=== PATIENT | male | born 1950 | race Caucasian/White ===

== ENCOUNTER 2023-08-29 23:23 | Inpatient (IN) | payer MEDICARE ==
[~2023-08-29] VITALS: Ht 182.9 cm; Wt 92.6 kg
[2023-08-29] MEDS ORDERED: FAMO10TA41 PO (23:43)
[2023-08-29] MEDS ORDERED: INSU100V7 SQ (23:43)
[2023-08-29] MEDS ORDERED: DILT30TA35 PO (23:43)
[2023-08-29] MEDS ORDERED: TADA5TAB2 PO (23:43)
[2023-08-29] MEDS ORDERED: APIX2.5T PO (23:43)
[2023-08-29] MEDS ORDERED: METF-440 PO (23:43)
[2023-08-29] MEDS ORDERED: ASPIRIN 81 MG TAB.CHEW ONE (23:48)
[2023-08-29] MEDS ORDERED: NITROGLYCERIN OINT 1 GM PACKET TP ONE (23:48)
[2023-08-29] MEDS ORDERED: LABETALOL HCL 100 MG/20 ML VIAL ONE (23:48)
[2023-08-29] MEDS: IV NORMAL SALINE 500 ML BAG IV ONE (23:54)
[2023-08-29] MEDS: LABETALOL HCL 100 MG/20 ML VIAL IV ONE (23:55)
[2023-08-29] MEDS: NITROGLYCERIN OINT 1 GM PACKET TP ONE (23:55)
[2023-08-29] MEDS: ASPIRIN 81 MG TAB.CHEW PO ONE (23:55)
[2023-08-30] MEDS ORDERED: ADENOSINE 6 MG/2 ML SYR IV ONE (00:01)
[2023-08-30] MEDS: ADENOSINE 6 MG/2 ML SYR IV ONE (00:02)
[2023-08-30] MEDS: ONDANSETRON 4 MG/2 ML VIAL IV ONE (00:10)
[2023-08-30] MEDS ORDERED: ONDANSETRON 4 MG/2 ML VIAL ONE (00:11)
[2023-08-30] MEDS ORDERED: ETOMIDATE 20 MG/10 ML VIAL ONE (00:13)
[2023-08-30] MEDS: ETOMIDATE 20 MG/10 ML VIAL IV ONE (00:20)
[2023-08-30 00:26] LABS: BASOPHILS # (AUTO) 0.1 K/UL (0.0-0.2); BASOPHILS % (AUTO) 0.5 % (0.0-2.0); EOSINOPHILS # (AUTO) 0.1 K/uL (0.0-0.7); EOSINOPHILS % (AUTO) 1.1 % (0.0-7.0); HEMATOCRIT 48.6 % (36.7-47.1); HEMOGLOBIN 15.6 g/dL (12.5-16.3); LYMPHOCYTES # (AUTO) 2.4 K/uL (0.8-4.8); LYMPHOCYTES % (AUTO) 20.5 % (20.5-51.5); MEAN CORPUSCULAR HEMOGLOBIN 24.9 uug (23.8-33.4); MEAN CORPUSCULAR HGB CONC 32 g/dL (32.5-36.3); MEAN CORPUSCULAR VOLUME 77.8 fL (73.0-96.2); MONOCYTES # (AUTO) 0.8 K/uL (0.1-1.30); MONOCYTES % (AUTO) 6.5 % (0.0-11.0); NEUTROPHILS # (AUTO) 8.4 K/uL (1.8-8.9); NEUTROPHILS % (AUTO) 71.4 % (38.5-71.5); PLATELET COUNT (AUTO) 189 K/uL (152-348); RED BLOOD CELL COUNT(AUTO) 6.24 MIL/uL (4.06-5.63); RED CELL DISTRIBUTION WIDTH 17.6 % (12.1-16.2); WHITE BLOOD COUNT (AUTO) 11.8 K/uL (3.6-10.2)
[2023-08-30 00:27] LABS: DIFFERENTIAL COMMENT 1
[2023-08-30 00:38] LABS: CALCIUM 8.7 mg/dL (8.5-10.1); CARBON DIOXIDE 21 mmol/L (21-32); CHLORIDE 105 mmol/L (98-107); CREATININE 1.4 mg/dL (0.6-1.3); GLUCOSE 172 mg/dL (74-106); POTASSIUM 3.5 mmol/L (3.5-5.1); SODIUM SERUM 140 mmol/L (136-145); UREA NITROGEN, BLOOD 34 mg/dL (7-18)
[2023-08-30 00:52] LABS: ALANINE AMINOTRANSFERASE 31 U/L (16-63); ALBUMIN 3.4 g/dL (3.4-5.0); ALKALINE PHOSPHATASE 96 U/L (50-136); ASPARTATE AMINOTRANSFERASE 38 U/L (15-37); BILIRUBIN,DIRECT 0.2 mg/dL (0.0-0.2); BILIRUBIN,TOTAL 0.8 mg/dL (0.2-1.0); NT-PRO BNP 272 pg/mL (0-125); TOTAL PROTEIN, SERUM 6.5 g/dL (6.4-8.2)
[2023-08-30] MEDS ORDERED: ACETAMINOPHEN 325 MG TABLET PO PRN (02:15)
[2023-08-30] MEDS ORDERED: hydrALAZINE HCL 20 MG/1 ML VIAL IV PRN (02:15)
[2023-08-30] MEDS ORDERED: ONDANSETRON 4 MG/2 ML VIAL IV PRN (02:15)
[2023-08-30] MEDS ORDERED: MORPHINE SULFATE 2 MG/1 ML DISP.SYRIN IVP PRN (02:15)
[2023-08-30] MEDS ORDERED: INSULIN REGULAR, HUMAN 300 UNITS/3 ML VIAL SQ PRN (02:15)
[2023-08-30] MEDS ORDERED: INSULIN REGULAR, HUMAN 300 UNIT/3 ML VIAL SQ PRN (02:15)
[2023-08-30] MEDS ORDERED: MAGNESIUM HYDROXIDE 30 ML LIQUID UDC PO PRN (02:15)
[2023-08-30] MEDS ORDERED: DEXTROSE 50% 50 ML DISP.SYRIN IV PRN (02:15)
[2023-08-30 03:59] LABS: *BILIRUBIN,URIN NEGATIVE (NEGATIVE); *CLARITY,URINE CLEAR (CLEAR); *COLOR,URINE YELLOW (YELLOW); *KETONES,URINE 1+ (NEGATIVE); *PROTEIN,URINE 1+ (NEGATIVE); *UROBILINOGEN,URINE 0.2 E.U./dl (NORMAL); LEUKOCYTE ESTERASE ,URINE NEGATIVE (NEGATIVE); NITRITE, URINE NEGATIVE (NEGATIVE); PH,URINE 5.5 (5.0-8.0)
[2023-08-30 04:00] LABS: *BLOOD, URINE TRACE (NEGATIVE); UGLUCOSE 3+ (NEGATIVE)
[2023-08-30 04:10] LABS: BACTERIA,URINE NONE SEEN /HPF (NONE SEEN); SQUAMOUS EPITHELIAL CELL,UR FEW /HPF (NONE SEEN); WBC,URINE 0-3 /HPF (0-3)
[2023-08-30 04:14] LABS: *AMPHETAMINE, URINE NEGATIVE (NEGATIVE); *BARBITURATE, URINE NEGATIVE (NEGATIVE); *BENZODIAZEPINE, URINE NEGATIVE (NEGATIVE); *CANNABINOID, URINE NEGATIVE (NEGATIVE); *COCCAINE, URINE NEGATIVE (NEGATIVE); *OPIATE, URINE NEGATIVE (NEGATIVE); *PHENCYCLIDINE SCREEN,URINE NEGATIVE (NEGATIVE)
[2023-08-30 04:15] LABS: FENTANYL, URINE NEGATIVE (NEGATIVE)
[2023-08-30 05:21] VITALS: BP 111/54; TEMP 97.8; O2SAT 94
[2023-08-30] MEDS: BLOOD SUGAR DIAGNOSTIC 1 EACH STRIP VI SCH (06:32)
[2023-08-30 07:40] VITALS: BP 121/61; TEMP 98.2; O2SAT 92
[2023-08-30 08:24] LABS: BASOPHILS # (AUTO) 0.1 K/UL (0.0-0.2); EOSINOPHILS # (AUTO) 0.1 K/uL (0.0-0.7); EOSINOPHILS % (AUTO) 1.5 % (0.0-7.0); LYMPHOCYTES # (AUTO) 2.5 K/uL (0.8-4.8); LYMPHOCYTES % (AUTO) 25.3 % (20.5-51.5); MEAN CORPUSCULAR HEMOGLOBIN 25.1 uug (23.8-33.4); MEAN CORPUSCULAR HGB CONC 33 g/dL (32.5-36.3); MEAN CORPUSCULAR VOLUME 77.1 fL (73.0-96.2); MONOCYTES # (AUTO) 0.8 K/uL (0.1-1.30); MONOCYTES % (AUTO) 8.2 % (0.0-11.0); NEUTROPHILS # (AUTO) 6.2 K/uL (1.8-8.9); PLATELET COUNT (AUTO) 179 K/uL (152-348); RED BLOOD CELL COUNT(AUTO) 5.97 MIL/uL (4.06-5.63); WHITE BLOOD COUNT (AUTO) 9.7 K/uL (3.6-10.2)
[2023-08-30 08:39] LABS: CALCIUM 8.3 mg/dL (8.5-10.1); CARBON DIOXIDE 26 mmol/L (21-32); CHLORIDE 106 mmol/L (98-107); GLUCOSE 138 mg/dL (74-106); POTASSIUM 3.9 mmol/L (3.5-5.1); SODIUM SERUM 141 mmol/L (136-145); UREA NITROGEN, BLOOD 32 mg/dL (7-18)
[2023-08-30 08:45] LABS: ALANINE AMINOTRANSFERASE 29 U/L (16-63); ALBUMIN 3.3 g/dL (3.4-5.0); ALKALINE PHOSPHATASE 101 U/L (50-136); ASPARTATE AMINOTRANSFERASE 75 U/L (15-37); BILIRUBIN,TOTAL 0.9 mg/dL (0.2-1.0); DIFFERENTIAL COMMENT 1; TOTAL PROTEIN, SERUM 6.4 g/dL (6.4-8.2)
[2023-08-30] MEDS: ENOXAPARIN SODIUM 100 MG/ML DISP.SYRIN SQ SCH (08:51)
[2023-08-30] MEDS: ASPIRIN 325 MG TABLET PO ONE (08:51)
[2023-08-30] MEDS: METOPROLOL TARTRATE 50 MG TABLET PO SCH (08:51)
[2023-08-30] MEDS: AMIODARONE HCL 200 MG TABLET PO SCH (08:52)
[2023-08-30] MEDS ORDERED: CARV12.52 PO (10:40)
[2023-08-30] MEDS ORDERED: ZANU80CA PO (10:40)
[2023-08-30] MEDS ORDERED: METF-442 PO (10:40)
[2023-08-30] MEDS ORDERED: INSU3INS9 SQ (10:40)
[2023-08-30] MEDS ORDERED: APIX5TAB PO (10:40)
[2023-08-30 11:48] VITALS: BP 115/59; TEMP 97.9; O2SAT 97
[2023-08-30] MEDS ORDERED: CLOP75TA33 PO (12:44)
[2023-08-30] MEDS ORDERED: ATORVASTATIN 40 MG TABLET PO SCH (21:00)
== END 2023-08-30 13:00 | disposition short-term general hospital (02) | DRG 280 ==
LOC: ER 23:26 → TELE3 08-30 02:00
PROVIDERS: ADMIT Internal Medicine; ATTEND Internal Medicine
PROC: 5A2204Z Restoration of Cardiac Rhythm, Single (ICD-10-PCS; principal; 2023-08-30)
DX: I21.4 Non-ST elevation (NSTEMI) myocardial infarction (principal); N17.0 Acute kidney failure with tubular necrosis; I47.19 Other supraventricular tachycardia; I48.92 Unspecified atrial flutter; I48.20 Chronic atrial fibrillation, unspecified; I48.0 Paroxysmal atrial fibrillation; Z79.01 Long term (current) use of anticoagulants; Z90.49 Acquired absence of other specified parts of digestive tract; E66.9 Obesity, unspecified; Z68.27 Body mass index [BMI] 27.0-27.9, adult; I10 Essential (primary) hypertension; E11.9 Type 2 diabetes mellitus without complications; Z79.84 Long term (current) use of oral hypoglycemic drugs; Z79.899 Other long term (current) drug therapy; I25.10 Atherosclerotic heart disease of native coronary artery without angina pectoris
CPT/HCPCS: 36415; 71045; 84484; 85025; 85730; 93005; G0378; J0153; J1650; J1815; J2405; J3490; J7040